=== PATIENT | male | born 1985 | race Caucasian/White ===

== ENCOUNTER 2021-10-08 01:57 | Emergency (ER) | payer MEDICAID, SELFPAY ==
[2021-10-08] VITALS (57 sets, daily range): BP systolic 79–145; BP diastolic 41–97; PULSE 90–167; RESP 12–32; TEMP 36.3–37.1; O2SAT 93–97
--- NOTE | 2021-10-08 02:12 | W.ED.GENAD ---
Discharge Plan Disposition Patient Disposition: [facility] Condition: Serious Discharge Details Chief Complaint: Nk/Back Pain Clinical Impression: Acute kidney injury, Hypocalcemia, Hyperkalemia, Transaminitis, Left leg weakness, Left hand paresthesia, Back pain, Leukocytosis, Rhabdomyolysis Primary Care Provider: Michelle Hope ED Provider: Jaspreet Trivedi Home Meds and New Rx's Prescriptions: No Action No Known Home Meds Discharge Data Discharge Date/Time-TO BE ENTERED AT DEPARTURE: 10/08/21 14:18 Medical Decision Making <Tata Qureshi DO - Last Filed: 10/11/21 19:03> Dr. Qureshi 0215 -- 35-year-old male with a h/o IVDA presents with left-sided lower back pain with left leg burning pain and numbness, and left forearm and hand tingling and pain since yesterday morning. No known fever. Heart rate range of low 100s to 130s. Temp 98.8. Patient appears restless and jittery at times. Bilateral upper and lower extremity distal pulses intact. Left DP and PT pulses intact but toes of left foot do appear cold to touch. Patient is unable to fully lift his left leg off the bed with muscle strength 2/5. He is able to wiggle his toes minimally. Diminished reflexes throughout bilateral lower extremities. No spasticity noted. Skin color appears normal to left lower extremity. Left hand median motor nerve decreased muscle strength, remainder of left upper extremity motor and sensory strength grossly intact. Back appears normal to inspection without midline tenderness. Differential diagnosis includes disc herniation, epidural abscess, discitis, osteomyelitis, rhabdomyolysis, electrolyte abnormality. We will place an IV, bolus IV fluids, screening labs, urinalysis, lactate, blood cultures, CT head, cervical spine and lumbar spine. Patient will likely need the MRI lumbar spine. Labs reviewed. White blood cell count 22. Lactate 1.9. Potassium 6.3. Sodium 126. Bicarb 19.7. Anion gap 16.3. Creatinine 5.5. Calcium 6.4. AST greater than 8000, ALT 2147. Will obtain a CT chest abdomen pelvis without contrast. We will add hepatitis, CK and Tylenol level. Pt states he was outside [place] all weekend in the sun. 0530 --CT head and cervical spine unremarkable. CT lumbar spine notes mild bulging at L4-5 and degenerative disc disease L5-S1. CT chest abdomen pelvis noted fatty infiltration of the liver, otherwise no other acute findings. 0600 -- awaiting CK level and labs have not yet resulted and needing to continue to rerun. Repeat BMP notes improvement of potassium to 5.6 and will hold on treatment for hyperkalemia at this time. Creatinine remains elevated and slightly increased to 5.7. Calcium decreased to 5.9. Will give 1 g of calcium chloride but hold on additional treatment for hyperkalemia at this time as he has no EKG abnormalities. Case discussed with Dr. Peralta for admission and he is declining and feels he needs transfer to a tertiary center. Patient had been able to urinate but was dark chaim and brown and small sample. Discussed with patient that he may need transfer to a [facility] for [facility]. He initially was refusing Montague catheter but now agreeable. Case discussed with [facility] and [facility] and no beds available. 0700 -- Case discussed with Dr. Carrasco and will admit to the ICU if patient able to make urine. Patient is now agreeable to Montague catheter placement. 0730 -- Case discussed with Dr. Verduzco and agrees that if patient able to make fair amount of urine, can admit here, but is unable to produce urine, recommends transfer to tertiary center for dialysis. Informed that patient's left thigh circumference is 21 cm and right thigh circumference is 19 cm. She will come to the ED to evaluate patient and obtain pressures. 0800 -- Case endorsed to Dr. Trivedi to follow-up on MRIs and patient's urine output and final disposition. Again if able to produce urine, can admit here to the ICU for suspected acute rhabdomyolysis with plan for cervical and lumbar spine MRI to rule out potential epidural abscess or discitis. If unable to urinate, will need transfer to tertiary center for potential dialysis. Case d/w pt's mom and she is aware of plan. 0810 -- lab called again to report that they were unable to run the CK level suspected due to high level. The CK will be sent out for result. Dr. Trivedi 13: 47 persistent anuria despite patient being on his fourth liter of lactated Ringer's. Patient will need to be transferred to a center that is capable of performing hemodialysis. No evidence of spinal epidural abscess discitis osteomyelitis on MRI. Discussed CT lower extremity findings with radiologist who believes there is some localized muscular edema, without definitive abscess or infectious process evident on this Noncon study. Patient does endorse polysubstance abuse including heroin and cocaine. Consider prolonged immobility with left leg in dependent position causing compressive muscle breakdown with concomitant dehydration and heat exposure leading to severe rhabdomyolysis. Patient has warm sensate left lower extremity DP pulses intact painful to the touch without crepitus deformity below fluctuance or overt cellulitis. Patient has been accepted at [facility] ED to ED transfer. Accepting physician Dr. Olguin. Medical Records Medical records reviewed: Yes I reviewed the patient's medical records. Imaging Data Radiologic Study: Radiologist's impression: CT Head Without Contrast Exam date and time: 10/08/2021 3:59 AM Age: 35 years old Clinical indication: Stroke-like symptoms; Left upper extremity and left lower extremity numbness/paresthesia; Additional info: Left arm/leg numb, R/O CVA TECHNIQUE: Imaging protocol: Computed tomography of the head without contrast. Radiation optimization: All CT scans at this facility use at least one of these dose optimization techniques: automated exposure control; mA and/or kV adjustment per patient size (includes targeted exams where dose is matched to clinical indication); or iterative reconstruction. Other technique: STROKE PROTOCOL was implemented. COMPARISON: No relevant prior studies available. FINDINGS: Brain: Normal. No hemorrhage. Unremarkable white matter. No mass effect. Cerebral ventricles: No ventriculomegaly. Paranasal sinuses: Visualized sinuses are unremarkable. No fluid levels. Mastoid air cells: Visualized mastoid air cells are well aerated. Bones/joints: Unremarkable. No acute fracture. Soft tissues: Unremarkable. IMPRESSION: No acute intracranial abnormality. ASSESSMENT: ASPECTS ([place] Stroke Program Early CT Score) is 10. CT Cervical Spine Without Contrast Exam date and time: 10/08/2021 3:59 AM Age: 35 years old Clinical indication: Stroke-like symptoms; Left upper extremity and left lower extremity numbness/paresthesia; Additional info: Left arm/leg numb, R/O CVA TECHNIQUE: Imaging protocol: Computed tomography of the cervical spine without contrast. Radiation optimization: All CT scans at this facility use at least one of these dose optimization techniques: automated exposure control; mA and/or kV adjustment per patient size (includes targeted exams where dose is matched to clinical indication); or iterative reconstruction. COMPARISON: No relevant prior studies available. FINDINGS: Bones/joints: No acute fracture. Normal alignment.? C6-C7 predominant degenerative disk disease and facet arthropathy with neuroforaminal and canal stenosis.. Lungs: Lung apices are normal. Soft tissues: Unremarkable. IMPRESSION: No acute findings. CT Lumbar Spine Without Contrast Exam date and time: 10/08/2021 4:13 AM Age: 35 years old Clinical indication: Low back pain; Patient HX: L lower back pain, R/O disc herniation/abscess TECHNIQUE: Imaging protocol: Computed tomography of the lumbar spine without contrast. Radiation optimization: All CT scans at this facility use at least one of these dose optimization techniques: automated exposure control; mA and/or kV adjustment per patient size (includes targeted exams where dose is matched to clinical indication); or iterative reconstruction. COMPARISON: No relevant prior studies available. FINDINGS: Bones/joints: There are no compression fracture deformities. There are no focal bone lesions. There is normal vertebral body alignment. There are no compression fracture deformities. There are no focal bone lesions. There is normal vertebral body alignment. Discs/Spinal canal/Neural foramina: At L4-L5, there is mild bulging annulus. At L5-S1, there is narrowing of the intervertebral disc space. Disc osteophyte complex is present. Intervertebral disc spaces are well-maintained. Soft tissues: Unremarkable. IMPRESSION: Mild bulging of the annulus at L4-L5. Degenerative disc disease at L5-S1. No herniated discs. CT Chest Without Contrast; Diagnostic Exam date and time: 10/08/2021 4:47 AM Age: 35 years old Clinical indication: Abdominal pain; Flank; Other: Low back; Left-sided; Patient HX: Acute kidney inj, elev liver enz, R/O acute process TECHNIQUE: Imaging protocol: Diagnostic computed tomography of the chest without contrast. 3D rendering (Not supervised by radiologist): MIP and/or 3D reconstructed images were created by the technologist. Radiation optimization: All CT scans at this facility use at least one of these dose optimization techniques: automated exposure control; mA and/or kV adjustment per patient size (includes targeted exams where dose is matched to clinical indication); or iterative reconstruction. COMPARISON: CT HEAD CERVICAL SPINE WO 10/08/2021 3:59 AM FINDINGS: Lungs: Linear atelectasis and/or fibrosis is seen involving the lower lobes bilaterally. These. Pleural spaces: Unremarkable. No pneumothorax. No pleural effusion. Heart: Unremarkable. No cardiomegaly. No pericardial effusion. Lymph nodes: Unremarkable. No enlarged lymph nodes. 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 Bones/joints: Unremarkable. No acute fracture. Soft tissues: Unremarkable. IMPRESSION: Linear atelectasis and/or fibrosis, as described above. CT Abdomen And Pelvis Without Contrast Exam date and time: 10/08/2021 4:47 AM Age: 35 years old Clinical indication: Abdominal pain; Flank; Other: Low back; Left-sided; Patient HX: Acute kidney inj, elev liver enz, R/O acute process TECHNIQUE: Imaging protocol: Computed tomography of the abdomen and pelvis without contrast. 3D rendering (Not supervised by radiologist): MIP and/or 3D reconstructed images were created by the technologist. Radiation optimization: All CT scans at this facility use at least one of these dose optimization techniques: automated exposure control; mA and/or kV adjustment per patient size (includes targeted exams where dose is matched to clinical indication); or iterative reconstruction. COMPARISON: CT LUMBAR SPINE WO 10/08/2021 4:13 AM FINDINGS: Liver: There is fatty infiltration of the liver. Gallbladder and bile ducts: Normal. No calcified stones. No ductal dilation. Pancreas: Normal. No ductal dilation. Spleen: Normal. No splenomegaly. Adrenal glands: Normal. No mass. Kidneys and ureters: Nonobstructing left renal calculi are identified with the largest one measuring approximately 2.5 millimeters. There is a low-density lesion in the right kidney measuring approximately 9 mm in size with a density of approximately 2 Hounsfield units, consistent with cyst. Stomach and bowel: Unremarkable. No obstruction. No mucosal thickening. Appendix: The appendix is normal in appearance. Intraperitoneal space: Unremarkable. No free air. No significant fluid collection. Vasculature: Unremarkable. No abdominal aortic aneurysm. Lymph nodes: Unremarkable. No enlarged lymph nodes. Urinary bladder: Unremarkable as visualized. Reproductive: Prostatic calcifications are identified. Bones/joints: There is narrowing of the intervertebral disc space at L5-S1 with disc osteophyte complex. Soft tissues: There is a small fat containing umbilical hernia noted. IMPRESSION: 1. Fatty infiltration of the liver. 2. Fat containing umbilical hernia. 3. Nonobstructing left renal calculi. 4. Right renal cyst. Lab Data Lab results reviewed: Yes I reviewed the patient's lab results. ECG Data Attestation: I personally reviewed and interpreted this ECG (s) as follows: Interpretation: rate of 97, sinus, no stemi. <Jaspreet Trivedi MD - Last Filed: 10/08/21 13:50> 0215 -- 35-year-old male with a h/o IVDA presents with left-sided lower back pain with left leg burning pain and numbness, and left forearm and hand tingling and pain since yesterday morning. No known fever. Heart rate range of low 100s to 130s. Temp 98.8. Patient appears restless and jittery at times. Bilateral upper and lower extremity distal pulses intact. Left DP and PT pulses intact but toes of left foot do appear cold to touch. Patient is unable to fully lift his left leg off the bed with muscle strength 2/5. He is able to wiggle his toes minimally. Diminished reflexes throughout bilateral lower extremities. No spasticity noted. Skin color appears normal to left lower extremity. Left hand median motor nerve decreased muscle strength, remainder of left upper extremity motor and sensory strength grossly intact. Back appears normal to inspection without midline tenderness. Differential diagnosis includes disc herniation, epidural abscess, discitis, osteomyelitis, rhabdomyolysis, electrolyte abnormality. We will place an IV, bolus IV fluids, screening labs, urinalysis, lactate, blood cultures, CT head, cervical spine and lumbar spine. Patient will likely need the MRI lumbar spine. Labs reviewed. White blood cell count 22. Lactate 1.9. Potassium 6.3. Sodium 126. Bicarb 19.7. Anion gap 16.3. Creatinine 5.5. Calcium 6.4. AST greater than 8000, ALT 2147. Will obtain a CT chest abdomen pelvis without contrast. We will add hepatitis, CK and Tylenol level. Pt states he was outside [place] all weekend in the sun. 0530 --CT head and cervical spine unremarkable. CT lumbar spine notes mild bulging at L4-5 and degenerative disc disease L5-S1. CT chest abdomen pelvis noted fatty infiltration of the liver, otherwise no other acute findings. 0600 -- awaiting CK level and labs have not yet resulted and needing to continue to rerun. Repeat BMP notes improvement of potassium to 5.6 and will hold on treatment for hyperkalemia at this time. Creatinine remains elevated and slightly increased to 5.7. Calcium decreased to 5.9. Will give 1 g of calcium chloride but hold on additional treatment for hyperkalemia at this time as he has no EKG abnormalities. Case discussed with Dr. Peralta for admission and he is declining and feels he needs transfer to a tertiary center. Patient had been able to urinate but was dark chaim and brown and small sample. Discussed with patient that he may need transfer to a [facility] center for dialysis. He initially was refusing Montague catheter but now agreeable. Case discussed with [facility] and [facility] and no beds available. 0700 -- Case discussed with Dr. Carrasco and will admit to the ICU if patient able to make urine. Patient is now agreeable to Montague catheter placement. 0730 -- Case discussed with Dr. Verduzco and agrees that if patient able to make fair amount of urine, can admit here, but is unable to produce urine, recommends transfer to tertiary center for dialysis. Informed that patient's left thigh circumference is 21 cm and right thigh circumference is 19 cm. She will come to the ED to evaluate patient and obtain pressures. 0800 -- Case endorsed to Dr. Trivedi to follow-up on MRIs and patient's urine output and final disposition. Again if able to produce urine, can admit here to the ICU for suspected acute rhabdomyolysis with plan for cervical and lumbar spine MRI to rule out potential epidural abscess or discitis. If unable to urinate, will need transfer to tertiary center for potential dialysis. Case d/w pt's mom and she is aware of plan. 0810 -- lab called again to report that they were unable to run the CK level suspected due to high level. The CK will be sent out for result. 13: 47 persistent anuria despite patient being on his fourth liter of lactated Ringer's. Patient will need to be transferred to a center that is capable of performing hemodialysis. No evidence of spinal epidural abscess discitis osteomyelitis on MRI. Discussed CT lower extremity findings with radiologist who believes there is some localized muscular edema, without definitive abscess or infectious process evident on this Noncon study. Patient does endorse polysubstance abuse including heroin and cocaine. Consider prolonged immobility with left leg in dependent position causing compressive muscle breakdown with concomitant dehydration and heat exposure leading to severe rhabdomyolysis. Patient has warm sensate left lower extremity DP pulses intact painful to the touch without crepitus deformity below fluctuance or overt cellulitis. Patient has been accepted at [facility] ED to ED transfer. Accepting physician Dr. Olguin. HPI <Tata Qureshi DO - Last Filed: 10/11/21 19:03> General Mode of arrival: wheelchair. Date/Time Provider Initiated Documentation: 10/08/21 02:01. Limitations to Documentation: no limitations. Information obtained by: patient. HPI Narrative: Patient is a 35-year-old male with a history of IV drug use who presents with left lower back pain, left leg burning pain and numbness, and left arm tingling and pain since this morning. Patient denies any symptoms yesterday. 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 Patient states he awoke this morning at [place] a[place] with left-sided lower back pain which felt tight. He states he also noted his left leg to feel burning pain and numb, extending from his thigh and into his distal leg and foot. Patient states he has tingling in his left hand with aching pain extending up to his left elbow. Patient denies any fever, headache, dizziness, blurry vision, chest pain, shortness of breath, abdominal pain, urinary symptoms, vomiting or diarrhea. Patient states he last injected cocaine 4 days ago into his right arm. He does occasionally snort fentanyl and heroin which she last used a few days ago. He states he drinks usually a sixpack of beer daily and states his last alcoholic drink was almost 2 days ago. Patient states he has been unable to ambulate on his left leg due to numbness and weakness. He denies any bowel or bladder incontinence or saddle anesthesia. Related Data Home Medications Medication Instructions Recorded Confirmed Unknown [No Known Home Meds] 10/08/21 10/08/21 Allergies Allergy/AdvReac Type Severity Reaction Status Date / Time No Known Allergies Allergy Unverified 10/08/21 02:05 General Stated Complaint: Nk/Back Pain ALFONSO: 3 Review of Systems <Tata Qureshi DO - Last Filed: 10/11/21 19:03> All systems reviewed & are unremarkable except as noted in HPI and below Constitutional Constitutional: Denies chills, Denies excessive sweating, Denies fatigue, Denies fever(s), Denies weakness and Denies weight loss Eyes Eyes: Reports system reviewed and no additional complaints, except as documented and Denies blurry vision ENT Ears, Nose, Mouth, and Throat: Denies vertigo, Denies dizziness, Denies otalgia, Denies nasal congestion, Denies sore throat and Denies throat swelling Cardiovascular Cardiovascular: Denies chest pain, Denies syncope, Denies rapid heart rate and Denies dyspnea Respiratory Respiratory: Denies chest congestion, Denies cough, Denies pain on inspiration and Denies dyspnea Gastrointestinal Gastrointestinal: Denies abdominal pain, Denies diarrhea and Denies vomiting Genitourinary Genitourinary: Denies hematuria, Denies dysuria and Denies flank pain Musculoskeletal Musculoskeletal: Reports back pain, Denies joint swelling, Reports numbness (left leg) and Reports tingling (left hand) Comments: L forearm and leg pain Integumentary/Breasts Skin/Breast: Denies lesions and Denies rash Neurologic Neurologic: Denies behavioral changes, Denies confusion, Denies vertigo, Denies dizziness, Denies syncope, Denies localized weakness, Reports numbness (left leg), Reports tingling (left hand) and Denies weakness Psychiatric Psychiatric: Denies behavioral changes, Denies confusion and Denies depression Endocrine Endocrine: Denies excessive sweating and Denies fatigue Hematologic/Lymphatic Hematologic/Lymphatic: Denies easy bruising and Denies lymphadenopathy Allergic/Immunologic Allergic/Immunologic: Denies throat swelling PFSH <Tata Qureshi DO - Last Filed: 10/11/21 19:03> All Active Problems (Updated 10/08/21 @ 13:50 by Jaspreet Trivedi MD) Rhabdomyolysis (Acute) Hypovolemia (Acute) Rhabdomyolysis (Acute) Polysubstance use disorder (Acute) Hyponatremia (Acute) Acute liver failure (Acute) Acute kidney injury (Acute) Hypocalcemia (Acute) Hyperkalemia (Acute) Transaminitis (Acute) Left leg weakness (Acute) Left hand paresthesia (Acute) Back pain (Acute) Leukocytosis (Acute) Medical History (Updated 10/08/21 @ 13:50 by Jaspreet Trivedi MD) Opiate abuse, continuous Surgical History (Updated 10/08/21 @ 03:11 by Tata Qureshi DO) History of dental surgery Social History Smoking/Tobacco Use Status: Current every day Smoking risk assessment performed?: Yes Alcohol Intake: current Alcohol Intake frequency: 3 or more drinks per day Alcohol type: beer Substance use type: does not use Do you feel safe at home: Yes Do you feel safe in your relationship?: Yes Exam <Tata Qureshi DO - Last Filed: 10/11/21 19:03> Const General: cooperative and ill appearing acutely Orientation: alert, awake and oriented x3 HENMT Head: normal to inspection Ears: hearing grossly normal bilaterally and external ears normal General nose exam: external nose normal Face and sinus: normal facial exam Mouth: oral mucosae normal and mucous membranes dry Teeth and gingiva: dentures (upper) Throat: posterior oropharynx normal Eyes General: appearance normal, both eyes and all related structures Eyelids: eyelids normal Pupils: PERRL EOM: EOM intact bilaterally Neck Neck: normal visual inspection Lymphatic: no lymphadenopathy noted Chest Chest: normal inspection of the chest Resp Effort & Inspection: normal respiratory effort and able to speak in complete sentences Auscultation: clear to auscultation bilaterally Cardio Rate: tachycardic Rhythm: regular rhythm GI Inspection: normal to inspection Palpation: soft, not firm, no guarding, no hepatosplenomegaly, no masses and nontender Auscultation: normal bowel sounds Male General Exam: Yes normal external exam Penis: normal penis Scrotum: scrotum normal Back/Spine/Pelvis Thoracic/Lumbar Spine: thoracic and lumbar spine normal to inspection and No lumbar spinal tenderness Skin General skin exam: no rashes or lesions noted Neuro General: patient alert, patient awake, patient oriented x3 and no meningeal signs Cranial Nerves: CN's II-XI intact bilaterally Cognition: normal cognition Speech: speech normal Gait: normal gait Motor: muscle tone normal throughout Sensory Exam: no sensory deficits noted DTR's: Rt Patellar: 0, Lt Patellar: 0, Rt Ankle: 0 and Lt Ankle: 0 Plantar Reflexes: Equivocal: bilateral (negative babinski b/l ) Other: Normal plantar and dorsiflexion Right foot. Unable to plantar and dorsiflex on the left foot. Difficulty lifting left leg from bed with muscle strength 2/5. Weak motor median nerve function left hand. Remainder of muscle strength to be left upper extremity within normal limits. Muscle strength right upper extremity 5/5. Psych Appearance: grossly normal Mental Status: mental status grossly normal Speech and Movement: speech and movement normal Affect: normal affect Thought Process: normal Course <Tata Qureshi DO - Last Filed: 10/11/21 19:03> Vital Signs Vital signs: Vital Signs Temperature 98.8 F 10/08/21 02:02 Pulse 108 H 10/08/21 02:02 Respiratory Rate 18 10/08/21 02:02 Blood Pressure 100/73 10/08/21 02:02 Pulse Oximetry 93 10/08/21 02:02 Temperature 98.8 F 10/08/21 02:02 Temperature Source Skin 10/08/21 02:02 Pulse 108 H 10/08/21 02:02 Respiratory Rate 18 10/08/21 02:02 Respiratory Effort Non-Labored 10/08/21 02:06 Blood Pressure 100/73 10/08/21 02:02 Pulse Oximetry 93 10/08/21 02:02 Pain Level 8 10/08/21 02:02 Critical Care Time <Tata Qureshi DO - Last Filed: 10/11/21 19:03> Critical Care Time Critical Care Time: Yes Total Critical Care Time: 60 Attestation: I spent 60 minutes of critical care time with this patient. This does not include time spent on separately reported billable procedures. Sign Out <Tata Qureshi DO - Last Filed: 10/11/21 19:03> Sign Out Data: Sign Out Comment: Multiple lab abnormalities likely in the setting of acute rhabdomyolysis --acute renal failure, hyperkalemia, hypocalcemia, transaminitis. Also possible epidural abscess or disciitis. Follow-up on cervical and lumbar spine MRIs. Continue IV fluid hydration. If patient able to make significant amount of urine from [place], can likely admit here to the ICU. If patient unable to urinate, will need transfer to tertiary facility for dialysis. Last updated by Tata Qureshi DO at 10/08/21 07:49 PAWSS <Tata Qureshi DO - Last Filed: 10/11/21 19:03> Have you Been Recently Intoxicated or Drunk Within the Last 30 days?: Yes Have you Ever Experienced Previous Episodes of Alcohol Withdrawal?: No Have you ever Experienced Withdrawal Seizures?: No Have you ever Experienced Delirium Tremens(DT)s?: No Have you ever undergone Alcohol Rehabilitation Treatment (i.e, inpt ot outpatient treatment programs)?: No Have you ever Experienced Blackouts?: Yes Have you ever Combined Alcohol with other Downers within the last 90 days?: No Have you ever Combined Alcohol with any other Substance of Abuse during the last 90 days?: No Positive Blood Alcohol level on Presentation? [PCS.BAL]: No Evidence of Increased Autonomic Activity (i.e. HR>120, tremor, sweating, agitation, nausea)?: No Result: 2 <Jaspreet Trivedi MD - Last Filed: 10/08/21 13:50> Result: 2
[2021-10-08 02:54] LABS: Bacteria Few HPF (Negative); C & S Indicated? Yes; Crystals Few Amorphous HPF (Negative); Epithelial Cells Rare HPF (Negative); Mucus Negative (Negative); Other Cells Few Yeast (Negative); RBC 0-2 HPF (0-2)
--- NOTE | 2021-10-08 03:00 | RT.EKG_ITS ---
APPROVED REPORT Exam: Resting ECG Reason for Exam: tachcardic Patient Location: E HR:97 bpm ECG Measurements Heart Rate 97 AXIS AZ 168 P 35 QRSd 80 QRS 43 QT 340 T 40 QTc 433 Conclusion Sinus rhythm...normal P axis, V-rate 60- 99 Low voltage, extremity leads...all extremity leads <0.5mV. Sinus. Normal axis. No STEMI. I have reviewed and interpreted ECG and agree with software generated interpretation.
--- NOTE | 2021-10-08 03:00 | DI.CT_ITS ---
Exam(s) CT LUMBAR SPINE WO EXAM: CT LUMBAR SPINE WO CLINICAL HISTORY: L lower back pain, r/o disc herniation/abscess. TECHNIQUE: Imaging Protocol: Axial computed tomography images with coronal and sagittal reformatted images were created and reviewed COMPARISON: No exams were available for comparison FINDINGS: Bones: There are no fractures, listhesis, nor pars defects. There are no lytic osseous lesions evide nt. INDIVIDUAL LEVELS: T12-L1:No disc herniation nor canal stenosis. Facet joints unremarkable. No foraminal stenosis. L1-2: No disc herniation nor canal stenosis. Facet joints unremarkable. No foraminal stenosis. L2-3: No disc herniation nor canal stenosis. Facet joints unremarkable. No Foraminal stenosis L3-4: No disc herniation nor canal stenosis. Facet joints unremarkable. No foraminal stenosis. L4-5: No disc herniation nor canal stenosis. Mild symmetrical annular bulging L5-S1: Moderate disc space narrowing. Mild annular bulging. No prominent disc herniation nor centra l canal stenosis. The visualized sacroiliac joints and sacrum appear unremarkable. PARASPINAL SOFT TISSUES: Multiple calculi are seen in the left kidney. IMPRESSION: 1. No fractures. Mild disc findings as above. 2. Incidentally noted are multiple calculi in left kidney. 3. RADIATION DOSE DELIVERED: 520.58mGy.cm Total DLP DATA REPOSITORY: All CT scans at this facility are submitted to the National Radiology Data Registry (NRDR) Dose Index Registry (DIR) with the [employer] (ACR). RADIATION OPTIMIZATION: All CT scans at this facility use at least one of these dose optimization te chniques: automated exposure control; mA and/or kV adjustment per patient size (includes targeted exa ms where dose is matched to clinical indication); or iterative reconstruction.
--- NOTE | 2021-10-08 03:00 | DI.CT_ITS ---
Exam(s) CT HEAD CERVICAL SPINE WO EXAM: CT HEAD CERVICAL SPINE WO CLINICAL HISTORY: left arm/leg numb, r/o cva. TECHNIQUE: Imaging Protocol: Axial computed tomography images with coronal and sagittal reformatted images were created and reviewed COMPARISON: No exams were available for comparison FINDINGS: BRAIN: There are no skull fractures nor fluid in the visualized paranasal sinuses. There is no evidence of intracranial hemorrhage, mass effect, or shift of midline structures. There are no extra-axial fluid collections. The ventricles are not enlarged or shifted and there is no blo od within the ventricular system nor within the basal cisterns. CERVICAL SPINE: There is no evidence of acute fracture nor listhesis. No significant prevertebral soft tissue swelli ng. There is reversal normal curvature. There is significant disc space narrowing at C5-6 level and bila teral Luschka joint osteophytes evident at this level. Other disc spaces including C6-7 exhibit norm al height. There is no evidence of significant facet joint arthropathy. There is no significant facet joint malalignment. No significant osseous lesions evident. IMPRESSION: No acute intracranial findings on this noninfused CT scan of the brain. No evidence of cervical spine fracture, malalignment, nor acute compromise of the cervical spinal can al. Chronic degenerative disc disease C5-6 level noted. RADIATION DOSE DELIVERED: 1,300.25mGy.cm Total DLP DATA REPOSITORY: All CT scans at this facility are submitted to the National Radiology Data Registry (NRDR) Dose Index Registry (DIR) with the [employer] (ACR). RADIATION OPTIMIZATION: All CT scans at this facility use at least one of these dose optimization te chniques: automated exposure control; mA and/or kV adjustment per patient size (includes targeted exa ms where dose is matched to clinical indication); or iterative reconstruction.
[2021-10-08] MEDS: Normal Saline 1,000 ML 1000 ML IV ×2 (03:27→05:39)
[2021-10-08 03:32] LABS: Lactate 1.9 mmol/L (0.9-1.7)
[2021-10-08 03:35] LABS: Abs Immature Grans 0.19 10^3/uL (0.0-0.06); Absolute Lymphocyte Count 0.93 10^3/uL (1.2-3.4); Basophils % 0.2; HCT 52.4 % (40.0-50.0); HGB 17.6 g/dL (13.5-17.5); Immature Grans % 0.8; Lymphocytes % 4.1; MCH 32.4 pg (27.0-33.0); MCHC 33.6 % (32.0-36.0); MCV 97 fL (80-95); MPV 11.6 fL (8.0-11.0); Monocytes % 4.2; Neutrophils % 90.7; Platelet Count 191 10^3/uL (130-400); RBC 5.43 10^6/uL (4.36-5.78); RDW 12.5 % (11.8-14.1); RDW-SD 44.7 fL; WBC 22.64 10^3/uL (4.4-10.8)
[2021-10-08 03:38] LABS: Absolute Basophil Count 0.05 10^3/uL (0.0-0.2); Absolute Monocyte Count 0.95 10^3/uL (0.1-0.8); Absolute Neutrophil Count 20.53 10^3/uL (1.2-6.7)
[2021-10-08 03:39] LABS: Diff Comment Agrees w/ Instrument; RBC Morphology Normal
[2021-10-08 03:51] LABS: ETHANOL BLOOD < 3.0 mg/dL (<10)
[2021-10-08 03:58] LABS: Albumin 3.9 g/dL (3.4-5.0); Alkaline Phosphatase 85 U/L (46-116); Anion Gap 16.3 mmol/L (3-11); BUN 43 mg/dL (7-18); Bilirubin, Total 0.9 mg/dL (0.2-1.0); CO2 19.7 mmol/L (21.0-32.0); Chloride 90 mmol/L (98-107); Estimated GFR 11.89 (mL/min/1.73m2); Glucose 121 mg/dL (74-106); Sodium 126 mmol/L (136-145); Total Protein 8.8 g/dL (6.4-8.2)
[2021-10-08 04:12] LABS: ALT 2147 U/L (16-63); AST > 8000 U/L (15-37)
[2021-10-08 04:15] LABS: CREATININE 5.5 mg/dL (0.70-1.30); Calcium 6.4 mg/dL (8.5-10.1)
--- NOTE | 2021-10-08 04:15 | DI.CT_ITS ---
Exam(s) CT CHEST/ABD/PEL WO EXAM: CT CHEST/ABD/PEL WO CLINICAL HISTORY: acute kidney inj, elev liver enz,r/o acute process. TECHNIQUE: Imaging Protocol: Axial computed tomography images with coronal and sagittal reformatted images were created and reviewed CONTRAST MATERIAL: Intravenous: none Oral: None COMPARISON: No exams were available for comparison FINDINGS: CHEST: LUNGS: There is atelectasis and some mild infiltrate in the posterior basal and lateral basal segment s of the left lower lobe, not associated with pleural effusion. Remainder of the left lung is clear. Also similar findings in the basal segments of the right lower lobe, not associated with pleural ef fusions.. There are no significant focal findings in the trachea and mainstem bronchi. No bronchiec tasis. MEDIASTINUM: No obvious hilar nor mediastinal adenopathy. Visualized thyroid unremarkable.Triangular density in the anterior mediastinal fat has appearance of thymus remnant. CARDIAC: Heart size is normal. There is no pericardial effusion.Caliber of the thoracic aorta is wit hin normal limits. OSSEOUS: No significant osseous lesions.No fractures. ABDOMEN: There is no ascites. LIVER: There are no obvious focal hepatic lesions evident of this noninfused study. GALLBLADDER/BILIARY: No obvious gallbladder pathology. CBD is not dilated. PANCREAS: There is a 1.2 x 1.3 cm addition defect on the superior aspect of the splenic tail, either variant of normal or possible concerning pancreatic nodule. This requires follow-up with MRI scan of the pancreas. SPLEEN: Spleen is not enlarged. No obvious intrasplenic lesions. ADRENALS: There are no significant adrenal masses. KIDNEYS: There are multiple nonobstructive calculi in the lower pole of the left kidney. No calculi seen in the opposite-right kidney. No hydronephrosis nor hydroureter. No obvious abnormality in the urinary bladder. No cyst or solid renal masses. ABDOMINAL AORTA: Abdominal aorta is not enlarged. LYMPH NODES: There is no retroperitoneal nor para-aortic adenopathy. ABDOMINAL WALL/GI: Fat containing umbilical hernia-para umbilical hernia. No bowel loops therein. No evidence of bowel obstruction. PELVIS: LYMPH NODES: There is no intrapelvic nor inguinal adenopathy. GI: No evidence of appendicitis.No evidence of sigmoid diverticulitis. URINARY BLADDER: No calculi nor obvious masses evident REPRODUCTIVE: Age appropriate OSSEOUS: No significant osseous lesions. Other: Lowermost images reveal subtle abnormal hypodensity in the medial muscles of the left thigh, p ossibly significant. IMPRESSION: 1. There are nonobstructive small calculi in the lower pole the left kidney. No hydronephrosis. 2. Fat containing umbilical/paraumbilical hernia. No bowel loops therein. No bowel obstruction 3. Subtle 1.3 x 1.2 cm addition defect on superior aspect of the pancreatic tail, appearing isodense to pancreatic tissue on this noninfused study. This is either a variant of normal or possibly a panc reatic nodule of concern. Recommend follow-up MRI study of the pancreas. RADIATION DOSE DELIVERED: 1,111.64mGy.cm Total DLP DATA REPOSITORY: All CT scans at this facility are submitted to the National Radiology Data Registry (NRDR) Dose Index Registry (DIR) with the [employer] (ACR). RADIATION OPTIMIZATION: All CT scans at this facility use at least one of these dose optimization te chniques: automated exposure control; mA and/or kV adjustment per patient size (includes targeted exa ms where dose is matched to clinical indication); or iterative reconstruction.
[2021-10-08 04:16] LABS: Potassium 6.3 mmol/L (3.5-5.1)
[2021-10-08 04:25] LABS: Source Nasal/Nares
--- NOTE | 2021-10-08 04:26 | DI.VRAD_ITS ---
PROCEDURE INFORMATION: Exam: CT Head Without Contrast Exam date and time: 10/08/2021 3:59 AM Age: 35 years old Clinical indication: Stroke-like symptoms; Left upper extremity and left lower extremity numbness/paresthesia; Additional info: Left arm/leg numb, R/O CVA TECHNIQUE: Imaging protocol: Computed tomography of the head without contrast. Radiation optimization: All CT scans at this facility use at least one of these dose optimization techniques: automated exposure control; mA and/or kV adjustment per patient size (includes targeted exams where dose is matched to clinical indication); or iterative reconstruction. Other technique: STROKE PROTOCOL was implemented. COMPARISON: No relevant prior studies available. FINDINGS: Brain: Normal. No hemorrhage. Unremarkable white matter. No mass effect. Cerebral ventricles: No ventriculomegaly. Paranasal sinuses: Visualized sinuses are unremarkable. No fluid levels. Mastoid air cells: Visualized mastoid air cells are well aerated. Bones/joints: Unremarkable. No acute fracture. Soft tissues: Unremarkable. IMPRESSION: No acute intracranial abnormality. ASSESSMENT: ASPECTS ([place] Stroke Program Early CT Score) is 10. PROCEDURE INFORMATION: Exam: CT Cervical Spine Without Contrast Exam date and time: 10/08/2021 3:59 AM Age: 35 years old Clinical indication: Stroke-like symptoms; Left upper extremity and left lower extremity numbness/paresthesia; Additional info: Left arm/leg numb, R/O CVA TECHNIQUE: Imaging protocol: Computed tomography of the cervical spine without contrast. Radiation optimization: All CT scans at this facility use at least one of these dose optimization techniques: automated exposure control; mA and/or kV adjustment per patient size (includes targeted exams where dose is matched to clinical indication); or iterative reconstruction. COMPARISON: No relevant prior studies available. FINDINGS: Bones/joints: No acute fracture. Normal alignment. C6-C7 predominant degenerative disk disease and facet arthropathy with neuroforaminal and canal stenosis.. Lungs: Lung apices are normal. Soft tissues: Unremarkable. IMPRESSION: No acute findings. Dictated and Authenticated by: Vinny Cox MD. Ordering:GERMAINE Payton MD
[2021-10-08 04:58] LABS: COVID-19 PCR Negative (Negative)
--- NOTE | 2021-10-08 05:03 | DI.VRAD_ITS ---
PROCEDURE INFORMATION: Exam: CT Lumbar Spine Without Contrast Exam date and time: 10/08/2021 4:13 AM Age: 35 years old Clinical indication: Low back pain; Patient HX: L lower back pain, R/O disc herniation/abscess TECHNIQUE: Imaging protocol: Computed tomography of the lumbar spine without contrast. Radiation optimization: All CT scans at this facility use at least one of these dose optimization techniques: automated exposure control; mA and/or kV adjustment per patient size (includes targeted exams where dose is matched to clinical indication); or iterative reconstruction. COMPARISON: No relevant prior studies available. FINDINGS: Bones/joints: There are no compression fracture deformities. There are no focal bone lesions. There is normal vertebral body alignment. There are no compression fracture deformities. There are no focal bone lesions. There is normal vertebral body alignment. Discs/Spinal canal/Neural foramina: At L4-L5, there is mild bulging annulus. At L5-S1, there is narrowing of the intervertebral disc space. Disc osteophyte complex is present. Intervertebral disc spaces are well-maintained. Soft tissues: Unremarkable. IMPRESSION: Mild bulging of the annulus at L4-L5. Degenerative disc disease at L5-S1. No herniated discs. Dictated and Authenticated by: Jac Madrigal MD. Ordering:GERMAINE Payton MD
[2021-10-08 05:17] LABS: PTT Activated 24.8 sec (21.0-27.5); Prothrombin Time 10.4 sec (9.3-11.0)
--- NOTE | 2021-10-08 05:21 | DI.VRAD_ITS ---
PROCEDURE INFORMATION: Exam: CT Chest Without Contrast; Diagnostic Exam date and time: 10/08/2021 4:47 AM Age: 35 years old Clinical indication: Abdominal pain; Flank; Other: Low back; Left-sided; Patient HX: Acute kidney inj, elev liver enz, R/O acute process TECHNIQUE: Imaging protocol: Diagnostic computed tomography of the chest without contrast. 3D rendering (Not supervised by radiologist): MIP and/or 3D reconstructed images were created by the technologist. Radiation optimization: All CT scans at this facility use at least one of these dose optimization techniques: automated exposure control; mA and/or kV adjustment per patient size (includes targeted exams where dose is matched to clinical indication); or iterative reconstruction. COMPARISON: CT HEAD CERVICAL SPINE WO 10/08/2021 3:59 AM FINDINGS: Lungs: Linear atelectasis and/or fibrosis is seen involving the lower lobes bilaterally. These. Pleural spaces: Unremarkable. No pneumothorax. No pleural effusion. Heart: Unremarkable. No cardiomegaly. No pericardial effusion. Lymph nodes: Unremarkable. No enlarged lymph nodes. 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 Bones/joints: Unremarkable. No acute fracture. Soft tissues: Unremarkable. IMPRESSION: Linear atelectasis and/or fibrosis, as described above. PROCEDURE INFORMATION: Exam: CT Abdomen And Pelvis Without Contrast Exam date and time: 10/08/2021 4:47 AM Age: 35 years old Clinical indication: Abdominal pain; Flank; Other: Low back; Left-sided; Patient HX: Acute kidney inj, elev liver enz, R/O acute process TECHNIQUE: Imaging protocol: Computed tomography of the abdomen and pelvis without contrast. 3D rendering (Not supervised by radiologist): MIP and/or 3D reconstructed images were created by the technologist. Radiation optimization: All CT scans at this facility use at least one of these dose optimization techniques: automated exposure control; mA and/or kV adjustment per patient size (includes targeted exams where dose is matched to clinical indication); or iterative reconstruction. COMPARISON: CT LUMBAR SPINE WO 10/08/2021 4:13 AM FINDINGS: Liver: There is fatty infiltration of the liver. Gallbladder and bile ducts: Normal. No calcified stones. No ductal dilation. Pancreas: Normal. No ductal dilation. Spleen: Normal. No splenomegaly. Adrenal glands: Normal. No mass. Kidneys and ureters: Nonobstructing left renal calculi are identified with the largest one measuring approximately 2.5 millimeters. There is a low-density lesion in the right kidney measuring approximately 9 mm in size with a density of approximately 2 Hounsfield units, consistent with cyst. Stomach and bowel: Unremarkable. No obstruction. No mucosal thickening. Appendix: The appendix is normal in appearance. Intraperitoneal space: Unremarkable. No free air. No significant fluid collection. Vasculature: Unremarkable. No abdominal aortic aneurysm. Lymph nodes: Unremarkable. No enlarged lymph nodes. Urinary bladder: Unremarkable as visualized. Reproductive: Prostatic calcifications are identified. Bones/joints: There is narrowing of the intervertebral disc space at L5-S1 with disc osteophyte complex. Soft tissues: There is a small fat containing umbilical hernia noted. IMPRESSION: 1. Fatty infiltration of the liver. 2. Fat containing umbilical hernia. 3. Nonobstructing left renal calculi. 4. Right renal cyst. Dictated and Authenticated by: Jac Madrigal MD. Ordering:GERMAINE Payton MD
[2021-10-08 05:25] LABS: Acetaminophen < 2 ug/mL (10-30)
[2021-10-08] MEDS: HYDROmorphone 2 MG/ML VIAL 0.5 MG IVP (05:49)
[2021-10-08 06:03] LABS: Anion Gap 13.5 mmol/L (3-11); BUN 44 mg/dL (7-18); CO2 21.5 mmol/L (21.0-32.0); Chloride 93 mmol/L (98-107); Estimated GFR 11.41 (mL/min/1.73m2); Glucose 99 mg/dL (74-106); Potassium 5.6 mmol/L (3.5-5.1); Sodium 128 mmol/L (136-145)
[2021-10-08 06:06] LABS: CREATININE 5.7 mg/dL (0.70-1.30); Calcium 5.9 mg/dL (8.5-10.1)
[2021-10-08] MEDS: Calcium Chloride 1000 MG/10 ML SYR IVP (06:46)
[2021-10-08] MEDS: Ondansetron 4 MG/2 ML VIAL IVP ×2 (06:49→09:04)
[2021-10-08] MEDS: HYDROmorphone 2 MG/ML VIAL 1 MG IVP (07:17)
--- NOTE | 2021-10-08 07:30 | DI.MRI_ITS ---
Exam(s) MR LUMBAR SPINE WO EXAM: MR LUMBAR SPINE WO CLINICAL HISTORY: L lower back pain, L leg weak/numb. TECHNIQUE: Multiplanar multisequence MRI of the Lumbar spine was performed. Sequences are degraded b y motion artifact, limiting the value of this exam. Patient was not able to be injected because of s uboptimal renal status. COMPARISON: CT CT CHEST/ABD/PEL WO from 10/08/[address] LUMBAR SPINE WO from 10/08/2021 FINDINGS: Five lumbar vertebrae are presumed Conus medullaris is at normal level. There is no evidence of obvious conus mass nor obvious subjacen t clumping of intrathecal nerve roots to suggest arachnoiditis. The distal thecal sac appears unrema rkable.There is no evidence of Tarlov intrasacral cysts nor other significant findings within the sac ral canal Bones:There are no fractures nor ominous osseous lesions in the lumbar vertebral bodies and visualize d sacrum. No evidence of discitis nor osteomyelitis. No evidence of obvious epidural nor paraspinal fluid collection, realizing the limitations of a nonin fused study. With respect to the individual levels... T12-L1: Unremarkable L1-2: Normal disc height and signal. No disc herniation nor central canal stenosis.No foraminal steno sis L2-3: Normal disc height. No disc herniation nor central canal stenosis.No foraminal stenosis.No face t arthropathy. L3-4: Normal disc height. No disc herniation or central canal stenosis.No foraminal stenosis.No face t arthropathy. L4-5: Normal disc height and signal. No disc herniation. No significant canal stenosis. No foramin al stenosis.. No facet arthropathy. L5-S1: Mild annular bulging. No prominent disc herniation or central canal stenosis. No foraminal s tenosis. No facet arthropathy. Soft tissues: No obvious abnormal fluid collection. Psoas muscles appear symmetrical. IMPRESSION: 1. Limited examination due to motion artifact and lack of IV contrast. 2. However, there is no evidence of obvious epidural nor paraspinal abscess, given the history here. Also no evidence of discitis nor osteomyelitis. 3. Annular bulging L5-S1 noted. No prominent disc herniation. No prominent central canal stenosis n or foraminal stenosis in the lumbosacral spine. No significant facet arthropathy. Report called by myself to the ER physician. DATA REPOSITORY:
--- NOTE | 2021-10-08 07:36 | PUCC_ITS ---
General Date of Service Date of service: 10/08/21 Time of Service: 07:36 Assessment and Plan Assessment and plan (1) Acute kidney injury: Status: Acute (2) Hypocalcemia: Status: Acute (3) Hyperkalemia: Status: Acute (4) Acute liver failure: Status: Acute (5) Leukocytosis: Status: Acute (6) Left leg weakness: Status: Acute (7) Back pain: Status: Acute (8) Hyponatremia: Status: Acute (9) Polysubstance use disorder: Status: Acute (10) Rhabdomyolysis: Status: Acute (11) Hypovolemia: Status: Acute Assessment and plan: This is a 35 yo man with polysubstance use (alcohol and cocaine) who present with back pain and left leg pain and weakness found to have acute renal failure and acute liver injury. I suspect his JAMES to be secondary to a pre-renal cause - namely lack of PO intake in the setting of working out in the hot and humid weather in addition to some alcohol intake and likely rhabdomyolysis (although his CK has been unable to be quantified as of yet). I suspect with aggressive IVF resuscitation he will begin to urinate and his kidney function will improve. His acute liver failure may be due to a shock liver related to recent cocaine use in addition to hypovolemia, however I do agree that hepatitis testing should be done in addition to HIV. He is young and I do suspect his organs to recover. I am concerned about the leg and back pain. I requested an MRI be performed to rule a possible epidural abscess given the IVDU history prior to his admission here as that would necessitate tertiary care. If the MRI comes back clear and he make acceptable urine (200-300 cc's this morning), I am comfortable managing his electrolyte abnormalities and multiorgan failure here. Recommendations Pulmonary: No acute concerns Cardiac: No acute concerns Renal: Acute renal failure - multifactorial: pre-renal and likely rhabdo - IVF resuscitation with LR recommended to euvolemia - recommend not giving more than 6L positive in total - await CK level - strict I/O's - has [place]- recommend monitoring q8hrs BMP if admitted to [facility] Hyponatremia - has already improved - no acute action needed Hyperkalemia - improved with IVF - continue to monitor I&O: Intake & Output 10/05/21 10/06/21 10/07/21 10/08/21 23:59 23:59 23:59 23:59 Intake Total 1000 / 1000 Balance 1000 / 1000 Weight 81.647 kg Daily Fluid Goal:: Positive GI Nutrition: If MRI is negative can have renal diet Acute Liver Failure - pending hepatitis panel - recommend adding HIV to hepatitis panel - monitor LFT's daily if staying Infectious Disease: No known infections Hematologic: Leukocytosis - reactive versus infectious Neurologic: Back pain and left leg weakness - pending spine MRI - recommend ruling out early compartment syndrome with thigh pressure via striker - recommend ortho consult if admitting to [facility] - multimodal pain control if being admitted: - opioids, tylenol, gabapentin - avoid NSAIDs given renal failure - can consider low dose ketamine if not controlled with above Endocrine: No acute concerns Lines: PIV - will need PICC if being admitted here Prophylaxis: recommend DVT ppx with hepain if being admitted to [facility] Code Status: Full Subjective Critical and life-threatening events over the past 24 hours: 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 He awoke this morning unable to move his left leg and with immense pain. He complained of severe left leg and pain pain with parasthesias. He has parasthesias on the entire left leg including the saddle area, but on of the left leg. He denies recent trauma. He states he does drink alcohol (usually a 6 pack) but not everyday. He was drinking beer over the weekend and he does use recreational cocaine. He has injected cocaine as well. His labs revealed significant abnormalities including acute renal failure, a hi gh white count, hyponatremia with hyperkalemia and acute liver injury (AST>ALT and a normal bili). He has a tox screen pending but his alcohol and Tylenol levels are normal. He is COVID negative and have a hepatitis panel pending as well as blood cultures pending. He had a chest C/A/P, Head/spine CT and lumbar spine CT. There was some mild bulging of the annulus at L4-L5 and degenerative disc disease at L5-S1. I was asked to assess the patient for possible ICU admission to [facility] as [facility] and [facility] had to capacity. Exam Narrative Exam Narrative: Gen: visible discomfort, normal respiratory effort, well-nourished HENT: PERRL Chest: No respiratory distress, normal appearance of chest, clear to auscultation bilaterally, no crackles or wheezes, normal inspiratory effort Heart: regular rate and rhythym, no murmurs, rubs or gallops Abdomen: Non-distended, soft, non tender Extremities: + DP and PT pulses bilaterally. Cold feeling feet bilaterally but even. Left thigh and buttocks area is larger and more tense than the right. He is able to wiggle toes and straighten knee, but with pain. 1-2/4 strength of left leg. 4/4 strength right leg. Slightly decreased patellar reflex on left compared to right. Neuro: AAOx3 , non focal Psych: cooperative, appropriate mental affect Most Recent VS/Results Last Vital Signs Temp 37.1 C 10/08/21 02:02 Pulse 94 H 10/08/21 07:18 Resp 14 10/08/21 07:30 BP 123/88 10/08/21 07:18 Pulse Ox 93 10/08/21 02:02 Laboratory Results - last 24 hr 10/08/21 10/08/21 10/08/21 02:30 03:00 03:00 WBC RBC Hgb Hct MCV MCH MCHC RDW Plt Count MPV Immature Gran % Neutrophils % Lymphocytes % Monocytes % Eosinophils % Basophils % Nucleated RBC % Absolute Neutrophils Absolute Lymphocytes Absolute Monocytes Absolute Eosinophils Absolute Basophils RBC Morphology PT 10.4 INR 1.0 APTT 24.8 VBG Lactate Sodium Potassium Chloride Carbon Dioxide Anion Gap BUN Creatinine Estimated GFR/1.73 m2 Glucose Calcium Total Bilirubin AST ALT Alkaline Phosphatase Total Protein Albumin Urine RBC 0-2 Urine WBC 10-20 H Ur Epithelial Cells Rare Urine Crystals Few Amorphous Urine Bacteria Few Urine Mucus Negative Urine Other Few Yeast Ur Culture Indicated? Yes Acetaminophen < 2 Ethyl Alcohol COVID-19 Source SARS-CoV-2 (PCR) 10/08/21 10/08/21 10/08/21 03:20 03:20 03:20 WBC 22.64 H RBC 5.43 Hgb 17.6 H Hct 52.4 H MCV 97 H MCH 32.4 MCHC 33.6 RDW 12.5 Plt Count 191 MPV 11.6 H Immature Gran % 0.8 Neutrophils % 90.7 Lymphocytes % 4.1 Monocytes % 4.2 Eosinophils % 0.0 Basophils % 0.2 Nucleated RBC % 0.0 Absolute Neutrophils 20.53 H Absolute Lymphocytes 0.93 L Absolute Monocytes 0.95 H Absolute Eosinophils 0.00 Absolute Basophils 0.05 RBC Morphology Normal PT INR APTT VBG Lactate 1.9 H Sodium 126 L Potassium 6.3 H* Chloride 90 L Carbon Dioxide 19.7 L Anion Gap 16.3 H BUN 43 H Creatinine 5.5 H* Estimated GFR/1.73 m2 11.89 Glucose 121 H Calcium 6.4 L Total Bilirubin 0.9 AST > 8000 H ALT 2147 H Alkaline Phosphatase 85 Total Protein 8.8 H Albumin 3.9 Urine RBC Urine WBC Ur Epithelial Cells Urine Crystals Urine Bacteria Urine Mucus Urine Other Ur Culture Indicated? Acetaminophen Ethyl Alcohol COVID-19 Source SARS-CoV-2 (PCR) 10/08/21 10/08/21 10/08/21 03:20 04:20 05:45 WBC RBC Hgb Hct MCV MCH MCHC RDW Plt Count MPV Immature Gran % Neutrophils % Lymphocytes % Monocytes % Eosinophils % Basophils % Nucleated RBC % Absolute Neutrophils Absolute Lymphocytes Absolute Monocytes Absolute Eosinophils Absolute Basophils RBC Morphology PT INR APTT VBG Lactate Sodium 128 L Potassium 5.6 H Chloride 93 L Carbon Dioxide 21.5 Anion Gap 13.5 H BUN 44 H Creatinine 5.7 H* Estimated GFR/1.73 m2 11.41 Glucose 99 Calcium 5.9 L* Total Bilirubin AST ALT Alkaline Phosphatase Total Protein Albumin Urine RBC Urine WBC Ur Epithelial Cells Urine Crystals Urine Bacteria Urine Mucus Urine Other Ur Culture Indicated? Acetaminophen Ethyl Alcohol < 3.0 COVID-19 Source Nasal/Nares SARS-CoV-2 (PCR) Negative Review of Systems All systems reviewed & are unremarkable except as noted in HPI and below Time spent with patient Time spent in Critical Care: 60 Time spent in Critical care included: Chart review, Documenting critically ill care, Time at immediate bedside and Discussing critically ill care with other medical staff
[2021-10-08] MEDS: LORazepam 20 MG/10 ML VIAL IVP ×2 (07:37→08:30)
--- NOTE | 2021-10-08 07:37 | NUR.NOTE ---
Nursing Note: This is an inaccurate blood pressure. Pt had just received 1 mg dilaudid IV and had arm bent while cuff was cycling
[2021-10-08 08:13] LABS: Bilirubin Color Interference (Negative); Blood Color Interference (Negative); Clarity Cloudy (Clear); Glucose Color Interference mg/dL (Negative); Ketones Color Interference mg/dL (Negative); Leukocyte Esterase Color Interference (Negative); Nitrite Color Interference (Negative); Specific Gravity 1.025 (1.005-1.025); Urobilinogen Color Interference EU/dL (Up TO 0.2)
[2021-10-08 08:24] LABS: Epithelial Cells Few HPF (Negative); Other Cells Few Yeast (Negative); WBC 20-50 HPF (0-5)
[2021-10-08 08:25] LABS: Bacteria Moderate HPF (Negative); Crystals Moderate Amorphous HPF (Negative); Mucus Moderate (Negative)
[2021-10-08] MEDS: Lactated Ringers 1,000 ML 1000 ML IV ×3 (08:25→13:11)
[2021-10-08 08:26] LABS: C & S Indicated? Yes
[2021-10-08] MEDS: MORPHine 4 MG/ML SYR 2 MG IVP (09:04)
--- NOTE | 2021-10-08 11:40 | DI.CT_ITS ---
Exam(s) CT LOWER EXTREMITY LT WO EXAM: CT LOWER EXTREMITY LT WO CLINICAL HISTORY: rhabdo, left gluteal and thigh pain. TECHNIQUE: Imaging Protocol: Axial computed tomography images with coronal and sagittal reformatted images were created and reviewed. CONTRAST MATERIAL: Intravenous: None COMPARISON: No exams were available for comparison FINDINGS: OSSEOUS: No fracture seen. No osseous lesions. No evidence of osteomyelitis. No evidence of hip migdalia int effusion. SOFT TISSUES: There is some streaking in the subcutaneous fat lateral to the left hip and deeper with in the trochanteric bursa region. No evidence of hip joint effusion. There streaking also seen arou nd the rectus femora cysts and tensor fascia latae. IMPRESSION: Inflammatory streaking in the subcutaneous fat over the lateral left hip without a drainable subcutan eous fluid collection. There also appears to be some fluid deeper subjacent to the tensor fascia lat a in the region of the trochanteric bursa. Discussed by phone with ER physician RADIATION DOSE DELIVERED: Total DLP DATA REPOSITORY: All CT scans at this facility are submitted to the National Radiology Data Registry (NRDR) Dose Index Registry (DIR) with the [employer] ([employer]). RADIATION OPTIMIZATION: All CT scans at this facility use at least one of these dose optimization te chniques: automated exposure control; mA and/or kV adjustment per patient size (includes targeted exa ms where dose is matched to clinical indication); or iterative reconstruction.
--- NOTE | 2021-10-08 12:20 | DI.CT_ITS ---
Exam(s) CT LOWER EXTREMITY RT WO EXAM: CT LOWER EXTREMITY RT WO CLINICAL HISTORY: PER DR. GREENBERG ([facility]). TECHNIQUE: Imaging Protocol: Axial computed tomography images with coronal and sagittal reformatted images were created and reviewed. CONTRAST MATERIAL: Intravenous: None COMPARISON: CT CT LOWER EXTREMITY LT WO from 10/08/2021 FINDINGS: Already dictated IMPRESSION: Already dictated RADIATION DOSE DELIVERED: 582.23mGy.cm Total DLP DATA REPOSITORY: All CT scans at this facility are submitted to the National Radiology Data Registry (NRDR) Dose Index Registry (DIR) with the [employer] ([employer]). RADIATION OPTIMIZATION: All CT scans at this facility use at least one of these dose optimization te chniques: automated exposure control; mA and/or kV adjustment per patient size (includes targeted exa ms where dose is matched to clinical indication); or iterative reconstruction.
[2021-10-08 13:02] LABS: *AMPHETAMINES SCREEN URINE Negative (Negative); *BARBITURATES SCREEN URINE Negative (Negative); *BENZODIAZEPINES SCREEN URINE Negative (Negative); Cannabinoids THC Negative (Negative); Cocaine Screen,Urine Positive (Negative); METHADONE URINE SCREEN Negative (Negative); OPIATES URINE SCREEN Negative (Negative)
[2021-10-08 13:03] LABS: Tricyclic Antidepressants Negative (Negative)
[2021-10-08] MEDS: fentaNYL 100 MCG/2 ML VIAL 25 MCG IVP (14:12)
[2021-10-08 18:04] LABS: CK Total >30000 U/L (<=250)
[2021-10-09 11:18] LABS: Hepatitis A Antibody IgM Negative (Negative); Hepatitis B Core Antibody Negative (Negative); Hepatitis B surface Ag Negative (Negative); Hepatitis C Ab w Rflx HCV PCR Reactive (Negative)
--- NOTE | 2021-10-10 09:14 | NUR.NOTE ---
Nursing Note: Urine culture result faxed to [facility] ICU for follow up. Dr. Katelin Means aware.
[2021-10-10 15:56] LABS: HCV RNA Detection Quantitative 4090000 IU/mL (Undetected); HCV RNA Qualitative Detected (Undetected)
== END 2021-10-08 14:18 ==
PROVIDERS: Physician Assistant; Emergency Provider Emergency Medicine; PCP Nurse Practitioner
DX: N17.9 Acute kidney failure, unspecified (principal); E87.1 Hypo-osmolality and hyponatremia; E87.5 Hyperkalemia; M54.50 Low back pain, unspecified; K72.00 Acute and subacute hepatic failure without coma; D72.829 Elevated white blood cell count, unspecified; R53.1 Weakness; E83.51 Hypocalcemia; R00.0 Tachycardia, unspecified; M62.82 Rhabdomyolysis
CPT/HCPCS: 36415; 51702; 71250; 80048; 80053; 80307; 82550; 86704; 86709; 86803; 87040; 87340; 87522; 87635; 93005; 96361; 96374; 96375; 96376; 99291; 70450; 72125; 72131; 72148; 73700; 74176; 80320; 80329; 81003; 81015; 83605; 85025; 85610; 85730; 87086; 93010; J2270; J2405; J3010; J3490